=== PATIENT | male | born 1985 | race Caucasian/White ===

== ENCOUNTER → 2018-01-11 | Outpatient (REF) | payer OTHER ==
[2018-01-11 20:11] LABS: CHLAMYDIA DNA AMPLIFICATION NEGATIVE (NEGATIVE); GC DNA AMPLIFICATION NEGATIVE (NEGATIVE)
== END ==
LOC: M LAB REF 17:16
DX: N50.82 Scrotal pain (principal)
CPT/HCPCS: 87086

== ENCOUNTER 2019-11-13 04:26 | Emergency (ER) | payer OTHER ==
[~2019-11-13] VITALS: Ht 175.3 cm; Wt 112.9 kg
[2019-11-13] MEDS ORDERED: OMEP-221 PO (04:37)
[2019-11-13 05:42] LABS: HEMATOCRIT 42.9 % (42.0-52.0); HEMOGLOBIN 14.9 g/dl (13.5-17.5); MEAN CORPUSCULAR HEMOGLOBIN 30.5 pg (27.0-33.0); MEAN CORPUSCULAR HGB CONC 34.7 g/dl (32.0-36.5); MEAN CORPUSCULAR VOLUME 87.9 fl (80.0-96.0); PLATELET COUNT, AUTOMATED 230 10^3/uL (150-450); RED BLOOD COUNT 4.88 10^6/uL (4.30-6.10); WHITE BLOOD COUNT 4.6 10^3/uL (4.0-10.0)
[2019-11-13] MEDS ORDERED: ISOVUE-370 76% 100ML VIAL As Ordered ONE (06:00)
--- NOTE | 2019-11-13 06:57 | REPVR ---
PROCEDURE INFORMATION: Exam: CT Abdomen And Pelvis With Contrast Exam date and time: 11/13/2019 6:09 AM Age: 34 years old Clinical indication: Abdominal pain; Localized; Right lower quadrant (rlq); Additional info: Right lower quadrant pain TECHNIQUE: Imaging protocol: Computed tomography of the abdomen and pelvis with intravenous contrast. Radiation optimization: All CT scans at this facility use at least one of these dose optimization techniques: automated exposure control; mA and/or kV adjustment per patient size (includes targeted exams where dose is matched to clinical indication); or iterative reconstruction. Contrast material: ISOVUE 370; Contrast volume: 100 ml; Contrast route: INTRAVENOUS (IV); COMPARISON: No relevant prior studies available. FINDINGS: Pleural space: No acute airspace or pleural disease. Liver: No focal hepatic mass. Gallbladder and bile ducts: No cholelithiasis or biliary ductal dilatation. Pancreas: No pancreatic mass or ductal dilatation. Spleen: Enlarged spleen measuring 14.7 cm in length. Adrenals: Unremarkable adrenals. Kidneys and ureters: Normal renal morphology. No hydronephrosis. Stomach and bowel: Mild gastric wall thickening. No significant small bowel dilatation. Mild wall thickening in the nondistended left colon. Diverticula, without pericolonic inflammation. Appendix: No acute appendicitis. Intraperitoneal space: No free fluid. Vasculature: Normal caliber of the abdominal aorta. Pelvic vascular calcification. Lymph nodes: Reactive inguinal lymph nodes. Urinary bladder: Normal bladder morphology. Reproductive: Unremarkable as visualized. Bones/joints: Schmorl's nodes . Soft tissues: Small fat containing umbilical and inguinal hernias. Localized infiltration of subcutaneous fat in the right inguinal region. IMPRESSION: 1. Mild gastric wall thickening. 2. Localized infiltration of subcutaneous fat in the right inguinal region. 3. Additional findings as described above. Electronically signed by: Mohit Saucedo On 11/13/2019 06:56:30 AM
[2019-11-13 07:00] VITALS: BP 134/74
== END 2019-11-13 07:33 | disposition home or self-care (01) ==
LOC: M ED 04:26
DX: K40.90 Unilateral inguinal hernia, without obstruction or gangrene, not specified as recurrent (principal); F17.200 Nicotine dependence, unspecified, uncomplicated
CPT/HCPCS: 36415; 74177; 80047; 85027; 99284; Q9967

== ENCOUNTER → 2020-02-21 | Outpatient (CLI) | payer OTHER ==
[~2020-02-21] MED LIST: OMEP-221 PO
[2020-02-21 10:10] LABS: BASO # 0.1 10^3/uL (0.0-0.2); BASO % 0.8 % (0.0-1.0); EOS # 0.2 10^3/uL (0.0-0.5); EOS % 2.5 % (0.0-3.0); HEMATOCRIT 45.8 % (42.0-52.0); HEMOGLOBIN 15.8 g/dl (13.5-17.5); LYMPH # 2.3 10^3/uL (1.5-5.0); LYMPH % 35.9 % (24.0-44.0); MEAN CORPUSCULAR HEMOGLOBIN 29.9 pg (27.0-33.0); MEAN CORPUSCULAR HGB CONC 34.5 g/dl (32.0-36.5); MEAN CORPUSCULAR VOLUME 86.7 fl (80.0-96.0); MONO # 0.4 10^3/uL (0.0-0.8); MONO % 5.7 % (0.0-5.0); NEUTROPHILS # 3.5 10^3/uL (1.5-8.5); NEUTROPHILS % 54.6 % (36.0-66.0); PLATELET COUNT, AUTOMATED 242 10^3/uL (150-450); RED BLOOD COUNT 5.28 10^6/uL (4.30-6.10); WHITE BLOOD COUNT 6.5 10^3/uL (4.0-10.0)
[2020-02-21 10:54] LABS: ALBUMIN 4.2 GM/DL (3.2-5.2); ALT/SGPT 39 U/L (12-78); BILIRUBIN,DIRECT 0.2 MG/DL (0.0-0.2); BILIRUBIN,TOTAL 0.7 MG/DL (0.2-1.0); BLOOD UREA NITROGEN 9 MG/DL (7-18); CALCIUM LEVEL 9.1 MG/DL (8.5-10.1); CARBON DIOXIDE LEVEL 30 MEQ/L (21-32); CHLORIDE LEVEL 107 MEQ/L (98-107); CHOLESTEROL LEVEL 193 MG/DL (<200); CHOLESTEROL RISK RATIO 4.195 (<5); CREATININE FOR GFR 1.08 MG/DL (0.70-1.30); GLOMERULAR FILTRATION RATE > 60.0 (>60); GLUCOSE, FASTING 92 MG/DL (70-100); HDL CHOLESTEROL 46 MG/DL (>40); LDL CHOLESTEROL 114 MG/DL (<100); LIPASE 128 U/L (73-393); NON-HDL-C 147 MG/DL; POTASSIUM SERUM 4.1 MEQ/L (3.5-5.1); SODIUM LEVEL 140 MEQ/L (136-145); TOTAL PROTEIN 7.3 GM/DL (6.4-8.2); TRIGLYCERIDES LEVEL 167 MG/DL (<150)
== END ==
LOC: M LAB 09:44
PROVIDERS: ATTEND Physician Assistant
DX: K21.9 Gastro-esophageal reflux disease without esophagitis (principal)

== ENCOUNTER → 2020-04-13 | Outpatient (CLI) | payer OTHER ==
[2020-04-13 12:40] LABS: ALBUMIN 4.1 GM/DL (3.2-5.2); ALT/SGPT 37 U/L (12-78); BILIRUBIN,DIRECT 0.2 MG/DL (0.0-0.2); BILIRUBIN,TOTAL 0.5 MG/DL (0.2-1.0); IRON (FE) 149 UG/DL (65-175); TOTAL IRON BINDING CAPACITY 339 UG/DL (250-450); TOTAL PROTEIN 7.5 GM/DL (6.4-8.2)
[2020-04-13 13:06] LABS: HEPATITIS B SURFACE ANTIGEN NEGATIVE (NEGATIVE)
[2020-04-13 13:33] LABS: HEPATITIS B CORE ANTIBODY IGM NEGATIVE (NEGATIVE); HEPATITIS C VIRUS ABY INDEX < 0.0 INDEX (<0.8)
[2020-04-13 13:35] LABS: HEPATITIS A ANTIBODY IGM NEGATIVE (NEGATIVE)
[2020-04-16 16:13] LABS: ANCA-ATYPICAL <1:20 titer (Neg:<1:20); ANTI-MITOCHONDRIAL ANTIBODY <20.0 Units (0.0-20.0); ANTINUCLEAR ANTIBODIES DIRECT Negative (Negative); CERULOPLASMIN 22.4 mg/dL (16.0-31.0); CYTOPLASMIC NEUTROP AB ANCA-C <1:20 titer (Neg:<1:20); PERINUCLEAR AB ANCA-P <1:20 titer (Neg:<1:20); TISSUE TRANSGLUTAMINASE IgA <2 U/mL (0-3)
== END ==
LOC: M LAB 11:17
PROVIDERS: ATTEND Internal Medicine Gastroenterology
DX: R10.13 Epigastric pain (principal)

== ENCOUNTER → 2020-04-29 | Outpatient (CLI) | payer OTHER ==
--- NOTE | 2020-04-29 08:06 | REP ---
INDICATION: SPLENOMEGALY COMPARISON: CT dated 11/13/2019 TECHNIQUE: Real time B-mode gregory scale ultrasound examination using curved array transducer. FINDINGS: Liver, and visualized pancreas are normal in contour, size, echogenicity, and overall appearance. No focal hepatic or pancreatic lesions are identified. Gallbladder is normal without gallstones, wall thickening, or pericholecystic fluid. No biliary ductal dilatation is appreciated and the common bile duct measures 2.8 mm diameter. Mild splenomegaly measuring 12.3 x 11.4 x 3.7 cm (QT=411) without focal splenic lesion or abnormality noted. The bilateral kidneys are normal in reniform shape without hydronephrosis or obvious abnormality. Right kidney measures 11.7 x 5.7 x 4.5 cm. Left kidney measures 12.1 x 5.1 x 5.6 cm. Abdominal aorta is normal and measures 2.0 cm maximal diameter. No ascites. IMPRESSION: Mild splenomegaly. No focal splenic lesions identified. <Electronically signed by Vinny Muse > 04/29/20 [id number]
== END ==
LOC: M RAD 06:59
PROVIDERS: ATTEND Internal Medicine Gastroenterology
DX: R16.1 Splenomegaly, not elsewhere classified (principal)

== ENCOUNTER → 2020-05-28 | Outpatient (CLI) | payer OTHER ==
[~2020-05-28] MED LIST changes: +DICY10CA13 PO
== END ==
LOC: M LABSMTC 11:10
PROVIDERS: ATTEND Anesthesiology
DX: Z20.828 Contact with and (suspected) exposure to other viral communicable diseases (principal); Z11.59 Encounter for screening for other viral diseases

== ENCOUNTER 2020-06-02 11:41 | Day surgery (SDC) | payer OTHER ==
[~2020-06-02] VITALS: Ht 175.3 cm; Wt 115.8 kg
[~2020-06-02 11:41] MED LIST changes: +LIDOCAINE 2% 100MG/5ML SDV (FOR ANES.) As Ordered ONE; +NS 1,000 ML IV ONE; +propofoL 200 MG/20 ML VIAL As Ordered ONE
[2020-06-02] MEDS ORDERED: fentaNYL 100 MCG/2 ML INJECTION (J3010) As Ordered ONE (14:21)
[2020-06-02] MEDS ORDERED: propofoL 500 MG/50 ML VIAL As Ordered ONE (14:25)
--- NOTE | 2020-06-02 14:32 | ROOR ---
Patient Name: Bradley Palafox Procedure Date: 06/02/2020 2:18 PM Date of : 1985 Age: 35 Room: [facility] Gender: Male Note Status: Finalized Procedure: Upper GI endoscopy Indications: Epigastric abdominal pain Providers: Renzo SKAGGS MD Referring MD: Ruth RAYMOND DO Requesting Provider: Medicines: Monitored Anesthesia Care Complications: No immediate complications. Procedure: Pre-Anesthesia Assessment: - The heart rate, respiratory rate, oxygen saturations, blood pressure, adequacy of pulmonary ventilation, and response to care were monitored throughout the procedure. The Endoscope was introduced through the mouth, and advanced to the second part of duodenum. The upper GI endoscopy was accomplished without difficulty. The patient tolerated the procedure well. Findings: The esophagus was normal. The stomach was normal. large volume/compliant The examined duodenum was normal. Impression: - Normal esophagus. - Normal stomach. - Normal examined duodenum. - No specimens collected. Recommendation: - Observe patient's clinical course. - Continue present medications. - Eat smaller, more frequent meals throughout the day. - Low fat diet. - Liquid/soft foods are tolerated better than solid foods. - Low fiber/well cooked vegetables are tolerated better than high fiber/fibrous foods/raw vegetables. - Avoid medications that inhibit gastric/intestinal motility such as narcotic medications. Procedure Code(s): --- Professional --- 81810, Esophagogastroduodenoscopy, flexible, transoral; diagnostic, including collection of specimen(s) by brushing or washing, when performed (separate procedure) Diagnosis Code(s): --- Professional --- R10.13, Epigastric pain CPT copyright 2019 [employer]. All rights reserved. The codes documented in this report are preliminary and upon jewelry repairer review may be revised to meet current compliance requirements. Renzo Skaggs MD Renzo SKAGGS MD 06/02/2020 2:32:11 PM Electronically signed by Renzo SKAGGS MD Number of Addenda: 0 Note Initiated On: 06/02/2020 2:18 PM Estimated Blood Loss: Estimated blood loss: none.
--- NOTE | 2020-06-02 14:44 | ROOR ---
" Patient Name: Bradley Palafox Procedure Date: 06/02/2020 2:20 PM Date of : 1985 Age: 35 Room: [facility] Gender: Male Note Status: Finalized Procedure: Colonoscopy Indications: Generalized abdominal pain, Change in bowel habits Providers: Renzo SKAGGS MD Referring MD: Ruth RAYMOND DO Requesting Provider: Medicines: Monitored Anesthesia Care Complications: No immediate complications. Procedure: Pre-Anesthesia Assessment: - The heart rate, respiratory rate, oxygen saturations, blood pressure, adequacy of pulmonary ventilation, and response to care were monitored throughout the procedure. The Colonoscope was introduced through the anus and advanced to 10 cm into the ileum. The colonoscopy was performed without difficulty. The patient tolerated the procedure well. The quality of the bowel preparation was good. Findings: The perianal and digital rectal examinations were normal. The colon appeared normal. The terminal ileum appeared normal. Biopsies for histology were taken with a cold forceps from the |{skip}| for evaluation of microscopic colitis. Impression: - Small internal hemorrhoids. - The entire examined colon is normal. - The examined portion of the ileum was normal. - Irritable bowel syndrome suspected. - Biopsies were taken with a cold forceps for evaluation of microscopic colitis. Recommendation: - Continue present medications. - Your ultrasound/doppler was essentially normal except: Your spleen is mildly enlarged Your doppler flow studies may possibly be suggestive of a heart valve leak. - Follow up with your PCP. You may be referred to a vacuum form operator and possibly a welding lead burner. Procedure Code(s): --- Professional --- 21366, Colonoscopy, flexible; with biopsy, single or multiple Diagnosis Code(s): --- Professional --- R19.4, Change in bowel habit R10.84, Generalized abdominal pain CPT copyright 2019 [employer]. All rights reserved. The codes documented in this report are preliminary and upon press service reader review may be revised to meet current compliance requirements. Renzo Skaggs MD Renzo SKAGGS MD 06/02/2020 2:44:09 PM Electronically signed by Renzo SKAGGS MD Number of Addenda: 0 Note Initiated On: 06/02/2020 2:20 PM Estimated Blood Loss: Estimated blood loss: none."
[2020-06-02 15:00] VITALS: BP 134/76
== END 2020-06-02 15:11 | disposition home or self-care (01) ==
LOC: M OPP 11:41
PROVIDERS: ATTEND Internal Medicine Gastroenterology
DX: R10.84 Generalized abdominal pain (principal); R19.4 Change in bowel habit; R10.13 Epigastric pain; Z79.899 Other long term (current) drug therapy; Z87.891 Personal history of nicotine dependence
CPT/HCPCS: 43235; 45380; 88305; J3010

== ENCOUNTER → 2020-06-30 | Outpatient (CLI) | payer OTHER ==
[~2020-06-30] MED LIST changes: -LIDOCAINE 2% 100MG/5ML SDV (FOR ANES.) As Ordered ONE; -NS 1,000 ML IV ONE; -propofoL 200 MG/20 ML VIAL As Ordered ONE
--- NOTE | 2020-07-01 09:15 | ECHO ---
DATE OF PROCEDURE: 06/30/2020 Age: 35 Gender: Male Height: 175 cm Weight: 117 kg REFERRING PHYSICIAN: Liban Cobb PA-C INDICATION: Hypertension. MEASUREMENTS: IVS 1.2 cm LV 4.2 cm LVPW 1.2 cm LA 4.3 cm Aorta 2.7 cm IVC 2.1 cm Mitral E wave velocity 94 cm/s Mitral A wave 61 cm/s E prime septal 11.2 cm/s E prime lateral 15.8 cm/s FINDINGS: This study is of fair technical quality corresponding to patients body habitus. Underlying sinus rhythm. Left ventricle has normal size and systolic function. Estimated LVEF 60% to 65%. Mild left ventricular hypertrophy is noted. Right ventricle is normal size and systolic function. Both atria appear normal. Aortic, mitral, tricuspid, and pulmonic valves were all reasonably well seen and appear normal. No pericardial effusion is noted. Inferior vena cava is dilated, but collapses with inspiration indicative of likely normal or mildly elevated central venous pressure. Aortic root and aortic arch appear normal. Abdominal aorta was not well seen. Doppler interrogation reveals competent aortic and mitral valves. There is trace tricuspid insufficiency. Calculated pulmonary artery pressure is within normal limits. Pulmonic valve is functionally competent as well. Mitral inflow pattern and tissue Doppler imaging of mitral annulus revealed normal diastolic function. CONCLUSIONS: 1. Study is of fair technical quality corresponding to patients body habitus. Underlying sinus rhythm. 2. Normal LV size with mild LVH and preserved LV systolic and diastolic function. 3. No significant valvular disease. 4. Possibly mildly elevated central venous pressure, but normal pulmonary artery pressure. 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 MTDD
== END ==
LOC: M CARPUL 08:28
PROVIDERS: ATTEND Physician Assistant
DX: R16.1 Splenomegaly, not elsewhere classified (principal)

== ENCOUNTER 2021-07-03 16:15 | Emergency (ER) | payer BC, OTHER ==
[~2021-07-03] VITALS: Ht 175.3 cm; Wt 116.5 kg
[~2021-07-03 16:15] MED LIST changes: -OMEP-221 PO; +OMEP40CA5 PO
[2021-07-03] MEDS ORDERED: LOSA25TA13 PO (16:33)
[2021-07-03 16:51] LABS: BASO # 0.1 10^3/uL (0.0-0.2); BASO % 0.6 % (0.0-1.0); EOS # 0.1 10^3/uL (0.0-0.5); EOS % 1.3 % (0.0-3.0); HEMATOCRIT 47.6 % (42.0-52.0); HEMOGLOBIN 17.2 g/dl (13.5-17.5); LYMPH # 1.7 10^3/uL (1.5-5.0); MEAN CORPUSCULAR HEMOGLOBIN 30.5 pg (27.0-33.0); MEAN CORPUSCULAR HGB CONC 36.1 g/dl (32.0-36.5); MEAN CORPUSCULAR VOLUME 84.4 fl (80.0-96.0); MONO # 0.5 10^3/uL (0.0-0.8); NEUTROPHILS # 5.6 10^3/uL (1.5-8.5); NEUTROPHILS % 70.7 % (36.0-66.0); PLATELET COUNT, AUTOMATED 306 10^3/uL (150-450); RED BLOOD COUNT 5.64 10^6/uL (4.30-6.10); WHITE BLOOD COUNT 7.9 10^3/uL (4.0-10.0)
[2021-07-03 17:07] LABS: CK-MB VALUE MASS < 1.0 NG/ML (<3.6); CPK CREATINE PHOSPHOKINASE 85 U/L (39-308); MB/CK RELATIVE INDEX 1.18 (< OR =4)
[2021-07-03 17:14] LABS: ALBUMIN 4.8 GM/DL (3.2-5.2); ALT/SGPT 46 U/L (12-78); BILIRUBIN,DIRECT 0.4 MG/DL (0.0-0.2); BILIRUBIN,TOTAL 1.4 MG/DL (0.2-1.0); BLOOD UREA NITROGEN 13 MG/DL (7-18); CALCIUM LEVEL 10.4 MG/DL (8.5-10.1); CARBON DIOXIDE LEVEL 24 MEQ/L (21-32); CHLORIDE LEVEL 106 MEQ/L (98-107); GLOMERULAR FILTRATION RATE > 60.0 (>60); GLUCOSE, FASTING 95 MG/DL (70-100); LIPASE 116 U/L (73-393); NT-PRO BNP 16 PG/ML (<125); POTASSIUM SERUM 3.9 MEQ/L (3.5-5.1); SODIUM LEVEL 140 MEQ/L (136-145); THYROID STIMULATING HORMONE 0.907 uIU/ML (0.358-3.740); TOTAL PROTEIN 8.8 GM/DL (6.4-8.2)
[2021-07-03] MEDS ORDERED: ISOVUE-370 76% 100ML VIAL As Ordered ONE (18:01)
[2021-07-03 18:24] LABS: CK-MB VALUE MASS < 1.0 NG/ML (<3.6); CPK CREATINE PHOSPHOKINASE 233 U/L (39-308); MB/CK RELATIVE INDEX 0.43 (< OR =4)
[2021-07-03 21:45] VITALS: BP 134/78
== END 2021-07-03 22:05 | disposition home or self-care (01) ==
LOC: M ED 16:15
DX: R07.9 Chest pain, unspecified (principal); I10 Essential (primary) hypertension; K21.9 Gastro-esophageal reflux disease without esophagitis; F12.10 Cannabis abuse, uncomplicated; Z87.891 Personal history of nicotine dependence; Z91.013 Allergy to seafood; Z79.899 Other long term (current) drug therapy
CPT/HCPCS: 36415; 71045; 71275; 80048; 80076; 82550; 82553; 83690; 83880; 84443; 84484; 85025; 93005; 93041; 94760; 99285; Q9967

== ENCOUNTER 2022-03-18 13:18 | Emergency (ER) | payer BC ==
[~2022-03-18] VITALS: Ht 175.3 cm; Wt 118.5 kg
[~2022-03-18 13:18] MED LIST changes: +LOSA25TA13 PO
[2022-03-18 13:53] LABS: BASO # 0.1 10^3/uL (0.0-0.2); BASO % 0.7 % (0.0-1.0); EOS # 0.1 10^3/uL (0.0-0.5); EOS % 1.6 % (0.0-3.0); HEMATOCRIT 49.6 % (42.0-52.0); HEMOGLOBIN 17.2 g/dl (13.5-17.5); LYMPH # 1.6 10^3/uL (1.5-5.0); MEAN CORPUSCULAR HEMOGLOBIN 30.7 pg (27.0-33.0); MEAN CORPUSCULAR HGB CONC 34.7 g/dl (32.0-36.5); MEAN CORPUSCULAR VOLUME 88.4 fl (80.0-96.0); MONO # 0.4 10^3/uL (0.0-0.8); MONO % 4.8 % (2.0-8.0); NEUTROPHILS # 5.3 10^3/uL (1.5-8.5); NEUTROPHILS % 71.4 % (36.0-66.0); PLATELET COUNT, AUTOMATED 264 10^3/uL (150-450); RED BLOOD COUNT 5.61 10^6/uL (4.30-6.10); WHITE BLOOD COUNT 7.4 10^3/uL (4.0-10.0)
[2022-03-18 14:05] LABS: INR 1.01; PARTIAL THROMBOPLASTIN TIME 30.6 SECONDS (24.8-34.2); PROTHROMBIN TIME 13.5 SECONDS (12.5-14.5)
[2022-03-18 14:20] LABS: LIPASE 37 U/L (12-53)
[2022-03-18 14:21] LABS: ALBUMIN 4.4 G/DL (3.2-5.2); ALKALINE PHOSPHATASE 67 U/L (46-116); ALT/SGPT 24 U/L (7.0-40); AST/SGOT 22 U/L (<34); BILIRUBIN,DIRECT 0.4 MG/DL (<0.4); BILIRUBIN,TOTAL 1.4 MG/DL (0.3-1.2); BLOOD UREA NITROGEN 14 MG/DL (9-23); CALCIUM LEVEL 9.5 MG/DL (8.5-10.1); CARBON DIOXIDE LEVEL 28 MMOL/L (20-31); CHLORIDE LEVEL 104 MMOL/L (98-107); CPK CREATINE PHOSPHOKINASE 70 U/L (46-171); CREATININE FOR GFR 1.16 MG/DL (0.70-1.30); GLOMERULAR FILTRATION RATE > 60.0 (>60); GLUCOSE, FASTING 100 MG/DL (60-100); POTASSIUM SERUM 4.4 MMOL/L (3.5-5.1); SODIUM LEVEL 138 MMOL/L (136-145); TOTAL PROTEIN 8.2 G/DL (5.7-8.2)
[2022-03-18 14:25] LABS: CK-MB VALUE MASS < 1.0 NG/ML (<3.6); MB/CK RELATIVE INDEX 1.42 (< OR =4)
[2022-03-18 14:29] LABS: FREE T4 1.07 NG/DL (0.89-1.76)
[2022-03-18 14:30] LABS: THYROID STIMULATING HORMONE 1.385 uIU/ML (0.55-4.78)
[2022-03-18 15:45] LABS: URIC ACID 7.2 MG/DL (3.7-9.2)
[2022-03-18 15:46] LABS: C REACTIVE PROTEIN QUANTITATIV < 0.40 MG/DL (<1.0)
[2022-03-18 16:25] LABS: D-DIMER QUANT < 270 ng/ml (<500)
[2022-03-18 16:34] LABS: ERYTHROCYTE SEDIMENTATION RATE 11 mm/hr (0-15)
[2022-03-18] MEDS ORDERED: KETOROLAC 30 MG/ML 1ML VIAL IV ONE (16:50)
[2022-03-18] MEDS ORDERED: PRED20TA PO (17:03)
[2022-03-18 17:10] VITALS: BP 143/91
== END 2022-03-18 17:20 | disposition home or self-care (01) ==
LOC: M ED 13:18
DX: R07.89 Other chest pain (principal); R94.31 Abnormal electrocardiogram [ECG] [EKG]; I10 Essential (primary) hypertension; K21.9 Gastro-esophageal reflux disease without esophagitis; Z87.891 Personal history of nicotine dependence; Z91.013 Allergy to seafood
CPT/HCPCS: 71046; 80048; 80076; 82550; 82553; 83690; 84439; 84443; 84484; 84550; 85025; 85379; 85610; 85652; 85730; 86140; 93005; 96374; 99284; J1885

== ENCOUNTER 2022-03-21 18:17 | Emergency (ER) | payer BC ==
[~2022-03-21] VITALS: Ht 175.3 cm; Wt 117.3 kg
[~2022-03-21 18:17] MED LIST changes: +PRED20TA PO
[2022-03-22 01:17] VITALS: BP 151/96
== END 2022-03-22 02:00 | disposition left against medical advice (07) ==
LOC: M ED 18:17
DX: Z53.21 Procedure and treatment not carried out due to patient leaving prior to being seen by health care provider (principal)

== ENCOUNTER → 2022-03-22 | Outpatient (CLI) | payer BC ==
[~2022-03-22] MED LIST changes: +ISOVUE-370 76% 100ML VIAL As Ordered ONE
[2022-03-22 15:16] LABS: BASO % 0.4 % (0.0-1.0); EOS # 0.1 10^3/uL (0.0-0.5); EOS % 0.4 % (0.0-3.0); HEMATOCRIT 47.1 % (42.0-52.0); HEMOGLOBIN 16.7 g/dl (13.5-17.5); LYMPH # 1.1 10^3/uL (1.5-5.0); LYMPH % 9.8 % (24.0-44.0); MEAN CORPUSCULAR HEMOGLOBIN 30.8 pg (27.0-33.0); MEAN CORPUSCULAR HGB CONC 35.5 g/dl (32.0-36.5); MEAN CORPUSCULAR VOLUME 86.9 fl (80.0-96.0); MONO # 0.5 10^3/uL (0.0-0.8); MONO % 4.1 % (2.0-8.0); NEUTROPHILS # 9.6 10^3/uL (1.5-8.5); NEUTROPHILS % 84.9 % (36.0-66.0); PLATELET COUNT, AUTOMATED 312 10^3/uL (150-450); RED BLOOD COUNT 5.42 10^6/uL (4.30-6.10); WHITE BLOOD COUNT 11.3 10^3/uL (4.0-10.0)
[2022-03-22 15:40] LABS: ALBUMIN 4.3 G/DL (3.2-5.2); ALKALINE PHOSPHATASE 66 U/L (46-116); ALT/SGPT 29 U/L (7.0-40); AST/SGOT 24 U/L (<34); BILIRUBIN,TOTAL 1.5 MG/DL (0.3-1.2); BLOOD UREA NITROGEN 21 MG/DL (9-23); CALCIUM LEVEL 9.6 MG/DL (8.5-10.1); CARBON DIOXIDE LEVEL 27 MMOL/L (20-31); CHLORIDE LEVEL 102 MMOL/L (98-107); CK-MB VALUE MASS < 1.0 NG/ML (<3.6); CREATININE FOR GFR 1.05 MG/DL (0.70-1.30); GLOMERULAR FILTRATION RATE > 60.0 (>60); GLUCOSE, FASTING 141 MG/DL (60-100); POTASSIUM SERUM 3.9 MMOL/L (3.5-5.1); SODIUM LEVEL 136 MMOL/L (136-145); TOTAL PROTEIN 7.8 G/DL (5.7-8.2)
== END ==
LOC: M RAD 13:36
PROVIDERS: ATTEND Physician Assistant
DX: R07.9 Chest pain, unspecified (principal)

== ENCOUNTER 2024-08-17 07:54 | Emergency (ER) | payer BC ==
[~2024-08-17] VITALS: Ht 175.3 cm; Wt 118.2 kg
[~2024-08-17 07:54] MED LIST changes: +DICY-61 PO; -DICY10CA13 PO; -ISOVUE-370 76% 100ML VIAL As Ordered ONE
[2024-08-17 08:39] LABS: BASO # 0.0 10^3/uL (0.0-0.2); BASO % 0.8 % (0.0-1.0); EOS # 0.1 10^3/uL (0.0-0.5); EOS % 1.9 % (0.0-3.0); LYMPH # 1.3 10^3/uL (1.5-5.0); LYMPH % 24.9 % (24.0-44.0); MONO # 0.2 10^3/uL (0.0-0.8); MONO % 4.7 % (2.0-8.0); NEUTROPHILS # 3.5 10^3/uL (1.5-8.5); NEUTROPHILS % 67.3 % (36.0-66.0); PLATELET COUNT, AUTOMATED 272 10^3/uL (150-450)
[2024-08-17 08:43] LABS: ERYTHROCYTE SEDIMENTATION RATE 9 mm/hr (0-15)
[2024-08-17] MEDS: diphenhydrAMINE 50 MG/ML VIAL IV STA (08:58)
[2024-08-17] MEDS: KETOROLAC 30 MG/ML 1 ML VIAL IV ONE (08:59)
[2024-08-17] MEDS: NS (Normal Saline) 0.9% 1,000 ML IV SCH (08:59)
[2024-08-17 09:09] LABS: ALT/SGPT 36 U/L (7.0-40); AST/SGOT 24 U/L (<34); CALCIUM LEVEL 9.9 MG/DL (8.5-10.1); CARBON DIOXIDE LEVEL 26 MMOL/L (20-31); CHLORIDE LEVEL 104 MMOL/L (98-107); CK-MB VALUE MASS < 1.0 NG/ML (<3.6); CPK CREATINE PHOSPHOKINASE 58 U/L (46-171); CREATININE FOR GFR 1.05 MG/DL (0.70-1.30); GLOMERULAR FILTRATION RATE > 90.0 (>60); POTASSIUM SERUM 4.0 MMOL/L (3.5-5.1); SODIUM LEVEL 141 MMOL/L (136-145)
[2024-08-17] MEDS ORDERED: ISOVUE-370 76% 100 ML VIAL As Ordered ONE (09:25)
[2024-08-17] MEDS ORDERED: ONDA-83 PO (09:27)
[2024-08-17] MEDS ORDERED: HOME MED LIST COMPLETE! XX SCH (09:30)
[2024-08-17] MEDS ORDERED: REGL10TA6 PO (12:30)
[2024-08-17 12:45] VITALS: BP 159/77; TEMP 98.3; O2SAT 98
== END 2024-08-17 13:10 | disposition home or self-care (01) ==
LOC: M ED 07:54
DX: R07.9 Chest pain, unspecified (principal); R11.0 Nausea; I10 Essential (primary) hypertension; Z91.013 Allergy to seafood; Z79.83 Long term (current) use of bisphosphonates; Z79.899 Other long term (current) drug therapy
CPT/HCPCS: 71045; 71275; 74177; 80048; 80076; 82550; 82553; 83690; 84484; 85025; 85652; 93005; 93041; 94760; 96361; 96374; 96375; 99285; J1200; J1885; J2765; Q9967

== ENCOUNTER → 2024-10-07 | Outpatient (CLI) | payer BC ==
[~2024-10-07] MED LIST changes: +ONDA-83 PO; +REGL10TA6 PO
[2024-10-07 08:48] LABS: BASO # 0.1 10^3/uL (0.0-0.2); BASO % 0.9 % (0.0-1.0); EOS # 0.2 10^3/uL (0.0-0.5); EOS % 3.1 % (0.0-3.0); LYMPH # 1.2 10^3/uL (1.5-5.0); LYMPH % 20.5 % (24.0-44.0); MONO # 0.3 10^3/uL (0.0-0.8); MONO % 5.3 % (2.0-8.0); NEUTROPHILS # 4.1 10^3/uL (1.5-8.5); NEUTROPHILS % 69.9 % (36.0-66.0); PLATELET COUNT, AUTOMATED 268 10^3/uL (150-450)
[2024-10-07 09:02] LABS: ERYTHROCYTE SEDIMENTATION RATE 11 mm/hr (0-15)
[2024-10-07 09:09] LABS: ESTIMATED AVERAGE GLUCOSE 91.0 MG/DL (60-110)
[2024-10-07 09:19] LABS: ALT/SGPT 80 U/L (7.0-40); AST/SGOT 44 U/L (<34); CALCIUM LEVEL 10.1 MG/DL (8.5-10.1); CARBON DIOXIDE LEVEL 27 MMOL/L (20-31); CHLORIDE LEVEL 103 MMOL/L (98-107); CREATININE FOR GFR 0.96 MG/DL (0.70-1.30); GLOMERULAR FILTRATION RATE > 90.0 (>60); POTASSIUM SERUM 4.4 MMOL/L (3.5-5.1); RHEUMATOID FACTOR QUANT < 3.5 IU/ML (<14); SODIUM LEVEL 140 MMOL/L (136-145); THYROXINE (T4) 8.4 UG/DL (4.5-10.9)
[2024-10-07 09:20] LABS: T UPTAKE 30.4 % (22.5-37.0)
[2024-10-07 09:21] LABS: VITAMIN B12 LEVEL 737 PG/ML (211-911)
[2024-10-11 02:42] LABS: VITAMIN E(ALPHA TOCOPHEROL) 18.2 mg/L (5.7-19.9); VITAMIN E(GAMMA TOCOPHEROL) 2.1 mg/L (<=4.3)
[2024-10-13 17:47] LABS: VITAMIN B1 LEVEL WHOLE BLOOD 140 nmol/L (78-185)
== END ==
LOC: M LAB 07:29
PROVIDERS: ATTEND Psychiatry & Neurology Neurology
DX: E07.9 Disorder of thyroid, unspecified (principal); E11.9 Type 2 diabetes mellitus without complications; E53.8 Deficiency of other specified B group vitamins

== ENCOUNTER → 2024-10-07 | Outpatient (CLI) | payer BC ==
[2024-10-07 08:50] LABS: BASO # 0.1 10^3/uL (0.0-0.2); BASO % 0.9 % (0.0-1.0); EOS # 0.2 10^3/uL (0.0-0.5); EOS % 3.2 % (0.0-3.0); LYMPH # 1.2 10^3/uL (1.5-5.0); LYMPH % 20.5 % (24.0-44.0); MONO # 0.3 10^3/uL (0.0-0.8); MONO % 5.6 % (2.0-8.0); NEUTROPHILS # 4.1 10^3/uL (1.5-8.5); NEUTROPHILS % 69.6 % (36.0-66.0); PLATELET COUNT, AUTOMATED 288 10^3/uL (150-450)
[2024-10-07 09:04] LABS: ERYTHROCYTE SEDIMENTATION RATE 9 mm/hr (0-15)
[2024-10-07 09:17] LABS: C REACTIVE PROTEIN QUANTITATIV < 0.50 MG/DL (<1.0)
[2024-10-07 09:18] LABS: TOTAL 25(OH) VITAMIN D 38.6 NG/ML (20.0-100.0); VITAMIN B12 LEVEL 651 PG/ML (211-911)
[2024-10-07 09:34] LABS: ALT/SGPT 84 U/L (7.0-40); AST/SGOT 49 U/L (<34); CALCIUM LEVEL 9.9 MG/DL (8.5-10.1); CARBON DIOXIDE LEVEL 29 MMOL/L (20-31); CHLORIDE LEVEL 104 MMOL/L (98-107); CREATININE FOR GFR 1.01 MG/DL (0.70-1.30); GLOMERULAR FILTRATION RATE > 90.0 (>60); MAGNESIUM LEVEL 1.9 MG/DL (1.8-2.4); POTASSIUM SERUM 4.5 MMOL/L (3.5-5.1); SODIUM LEVEL 140 MMOL/L (136-145)
[2024-10-10 14:42] LABS: LYME TOTAL ANTIBODY CIA <= 0.90 Index (<=0.90)
[2024-10-11 02:42] LABS: VITAMIN E(ALPHA TOCOPHEROL) 18.2 mg/L (5.7-19.9); VITAMIN E(GAMMA TOCOPHEROL) 2.1 mg/L (<=4.3)
[2024-10-17 16:36] LABS: TESTOSTERONE FREE (DIRECT) 58.9 pg/mL (35.0-155.0); TESTOSTERONE TOTAL FOR T&D 283 ng/dL (250-1100)
== END ==
LOC: M LAB 06:46
PROVIDERS: ATTEND Physician Assistant
DX: R20.2 Paresthesia of skin (principal); D51.9 Vitamin B12 deficiency anemia, unspecified; E11.9 Type 2 diabetes mellitus without complications; E07.9 Disorder of thyroid, unspecified

== ENCOUNTER → 2024-10-24 | Outpatient (CLI) | payer BC | LOC: M SOG 07:24 | PROVIDERS: ATTEND Orthopaedic Surgery | DX: M25.512 Pain in left shoulder (principal) ==